=== PATIENT | female | born 1990 | race Caucasian/White ===

== ENCOUNTER 2021-04-29 22:27 | Emergency (ER) | payer OTHER ==
[~2021-04-29] VITALS: Ht 157.5 cm; Wt 86.2 kg
[2021-04-29] MEDS ORDERED: HUMALOG100 UNIT/1 SUBQ (22:44)
[2021-04-29 23:37] LABS: HEMATOCRIT 38.5 % (37.0-47.0); HEMOGLOBIN 13.3 gm/dL (12.0-15.0); MCH 30.8 pg (26.0-34.0); MCHC 34.6 g/dL (28.0-37.0); RBC 4.33 mil/uL (4.20-5.00); RDW-CV 13.1 % (10.5-14.5); WBC 8.1 thou/uL (4.0-11.0)
[2021-04-29 23:49] LABS: CALCIUM 8.1 mg/dL (8.5-10.1); CREATININE 0.7 mg/dL (0.6-1.3)
[2021-04-30 02:33] VITALS: BP 146/92
== END 2021-04-30 02:34 | disposition home or self-care (01) ==
LOC: M.ERS 22:27
PROVIDERS: Personal Emergency Response Attendant
DX: M79.651 Pain in right thigh (principal); E10.65 Type 1 diabetes mellitus with hyperglycemia